=== PATIENT | male | born 1945 | race Caucasian/White ===

== ENCOUNTER 2017-03-08 12:18 | Emergency (ER) | payer MEDICARE, MEDICAID ==
[~2017-03-08] VITALS: Ht 180.3 cm; Wt 99.8 kg
[~2017-03-08 12:18] MED LIST: ALLOPURINOL100 MG PO; BP PILL OR; COLCHICINE 0.60.6 MG PO; GLYBURIDE 5MG TA5 MG PO; HYDROCODONE1 TABLET PO; INDOMETHACIN50 MG PO; KEFLEX 500MG.500 MG PO; LORTAB 5/500 501 TAB PO; METFORMIN500 MG PO; SIMVASTATIN10 MG PO
[2017-03-08] MEDS ORDERED: LISINOPRIL40 MG PO (12:25)
[2017-03-08] MEDS ORDERED: OXCARBAZEPINE150 M1 PO (12:25)
--- NOTE | 2017-03-08 13:04 | RADIOLOGY REPORT PS360 ---
CT HEAD W/O CONTRAST HISTORY: FALL BRUISING TO LEFT FOREHEAD ORDERING PHYSICIAN: Bryn Middleton MD PATIENT AGE: 71 years COMPARISON: None TECHNIQUE: Axial images obtained without contrast. Brain and bone windows reviewed. FINDINGS: No midline shift, mass effect, intracranial hemorrhage, hydrocephalus, or extra-axial fluid collection is evident. There is mild generalized atrophy. An old lacunar is present in the left phlebolith. Hypoattenuation mild vascular disease. The vertex of the skull is included on the exam. This is an area of concern, then, the study and be repeated including this region. Of the visualized calvarium, no fracture evident. There is deformity of the nasal bone which may be due to an old fracture. Please correlate clinically. IMPRESSION: 1. No acute intracranial findings. 2. Exclusion of the vertex of the skull. 3. Nasal bone fracture which may be old. Please correlate
--- NOTE | 2017-03-08 13:20 | Emergency Room Report ---
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 PT RERORTS EMS WAS AT HIS YESTERDAY, UNKNOWN WHAT HAPPENED BUT STATES HE WAS LAYING IN THE FLOOR WHEN EMS GOT THERE, STATES HE DID NOT WANT TO COME TO HOSPITAL YESTERDAY. PT REPORTS L SIDED RIB PAIN. BRUISING NOTED TO L EYEBROW AREA. 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 N Clinical Suspician of Infection? N Mental Status: 1 - Regular (Normal Baseline) Sepsis Risk:Low Sepsis Risk Have you (or family members/close friends) recently traveled outside the [place]? N If Yes, where/when: Have you had exposure to infectious disease within the past month? N TB? Other? Specify: Comment The patient arrives by ambulance complaining of injuries from a fall on Monday 3 days ago. He says that he got up to use the bathroom in the middle of the night and did not turn the light on and somebody had LEFT a chair out. He fell over it. He has an abrasion on his LEFT eyebrow and LEFT forehead area. His main complaint is pain in his LEFT ribs. He has been able to ambulate with a walker since the fall. He denies abdominal pain or vomiting. He denies neck pain. No new visual disturbance. He has not taken anything for the pain. ALLERGIES Coded Allergies: No Known Allergies (03/08/17) Home Medications Reported Medications Allopurinol 200 MG PO TID Metformin HCL (Metformin) 1,000 MG PO BID Lisinopril (Lisinopril 40MG) 40 MG PO DAILY Oxcarbazepine (Oxcarbazepine 150MG TAB) 150 MG PO BID #180 History Medical History General CAD? No Angina: No IN: No Hypertension? Yes Hyperlipidemia? No CHF? No DVT? No PE? No COPD? No Asthma? Yes Anemia? No GERD? No Gastric ulcers? No GI Bleed? No Hernia? No Thyroid Problems? No Hypothyroidism? No CVA? No Seizures? No Diabetes? Yes Insulin Dependent: No Insulin Pump: No Home FSBS? No Renal Insuffiency? No End Stage Renal Disease? No UTI? No Stones? No GB Disease: No Nephritic Syndrome? No Asplenia? No Hepatitis? No Sickle Cell Disease? No Arthritis? No Migraines? No Cataracts? No Glaucoma? No MRSA? No HIV? No TB? No Anxiety? No Depression? No Cancer? No More? No Immunization Hx DT/Tetanus 1-4 YRS Surgical Hx Previous Surgery?N Social History Smoking Hx Smoker: Never Smoker Tobacco: No Alcohol Alcohol: Yes Review of Systems All Other Systems Reviewed and Negative Constitutional denies fever Respiratory denies shortness of breath Cardiovascular chest pain (LEFT ribs) Gastrointestinal denies abdominal pain, denies vomiting Musculoskeletal denies neck pain Physical Exam Vital Signs Vital Signs Date Time Temp Pulse Resp B/P Pulse O2 O2 Flow FiO2 Ox Delivery Rate 03/08 1356 98.1 99 15 155/82 97 03/08 1338 99 15 155/82 97 03/08 1219 98.1 98 14 164/89 98 General Appearance no apparent distress Eye Exam - bilateral eye normal exam, bilateral eye PERRL, bilateral eye EOMI Ear, Nose, Throat abrasion in the area of his lateral aspect of LEFT eyebrow Neck normal inspection, non-tender, supple, full range of motion Respiratory Status Yes: trachea midline, chest symmetrical, tender on palpation. No: respiratory distress. Lung Sounds bilateral: normal breath sounds, lungs clear. 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 Ribs are tender, but abdomen is not tender. No bony crepitus or subcutaneous air of rib cage. No instability. Medical Decision Making LABS/Meds/Orders Pt receiving controlled substance in ED? No Results/Orders Orders Procedure Date/time Status DIET-NOTHING BY MOUTH 03/[address] HEAD REQ 03/08 1227 Complete XRAY/CT/US XRAY/CT/US XRAY rib Comment Rib x-ray series interpreted by Bryn Middleton M.D. Negative for radiographic rib fracture, pneumothorax, hemothorax, or wide mediastinum. CT head Comment CT scan interpreted by radiologist: Possible old nasal fracture. No acute intracranial injury. Departure Departure Disposition DC Home or Self Care(routine) Clinical Impression Primary Impression: Forehead abrasion Qualifiers: Encounter type: initial encounter Qualified Code: S00.81XA - Abrasion of other part of head, initial encounter Secondary Impressions: Contusion of rib on left side Qualifiers: Encounter type: initial encounter Qualified Code: S20.212A - Contusion of left front wall of thorax, initial encounter Fall from standing Qualifiers: Encounter type: initial encounter Qualified Code: W19.XXXA - Unspecified fall, initial encounter Condition STABLE Referrals KELLIE MCLEAN (PCP) Patient Instructions DI for Closed Head Injury, DI for Rib Contusion, How to Prevent Falls Additional Instructions Tylenol for pain. Additional instructions for HEAD INJURY: See your physician as soon as possible for further evaluation. Return immediately if severe headache, vomiting, problems with vision or speech, numbness or weakness of the extremities, or severe neck pain. Additional instructions for RIB INJURIES: See your physician as soon as possible for further evaluation. Hold a pillow against your injured ribs to help with pain when coughing or sneezing. Sleep with several pillows to help support you in the most comfortable position. Take deep breaths frequently. Return immediately if shortness of breath, intolerable pain, coughing of blood, abdominal pain or vomiting. ED Critical Care Critical Care No at [id number]
[2017-03-08 13:56] VITALS: BP 155/82
--- NOTE | 2017-03-08 14:15 | RADIOLOGY REPORT PS360 ---
[id number] VIEWS HISTORY: FALL, L RIB PAIN ORDERING PHYSICIAN: Bryn Middleton MD PATIENT AGE: 71 years COMPARISON: None FINDINGS: Probably the chest shows atelectatic changes in the left lower lobe. There is a minimally displaced left seventh rib fracture anteriorly. There may be a tiny left pleural effusion. The right lung is clear. IMPRESSION: Minimally displaced left seventh rib fracture with left lower lobe atelectasis and small left effusion
== END 2017-03-08 14:06 | disposition home or self-care (01) ==
LOC: ER 12:18
DX: S00.81XA Abrasion of other part of head, initial encounter (principal); S20.212A Contusion of left front wall of thorax, initial encounter; I10 Essential (primary) hypertension; E11.9 Type 2 diabetes mellitus without complications; J45.909 Unspecified asthma, uncomplicated; W01.0XXA Fall on same level from slipping, tripping and stumbling without subsequent striking against object, initial encounter; Y92.019 Unspecified place in single-family (private) house as the place of occurrence of the external cause